=== PATIENT | male | born 1990 | race Caucasian/White ===

== ENCOUNTER 2016-10-28 22:32 | Emergency (ER) | payer SELFPAY ==
[~2016-10-28] VITALS: Ht 182.9 cm; Wt 182.0 kg
[2016-10-28 22:35] VITALS: BP 181/88; PULSE 106; RESP 18; TEMP 97.9; O2SAT 98
[2016-10-29 00:27] VITALS: BP 133/61; PULSE 88; RESP 16; O2SAT 97
--- NOTE | 2016-10-29 01:32 | PD ---
HPI Chief Complaint: Injury Time Seen by Provider: :29 Travel History International Travel<30 days: No Contact w/Intl Traveler<30days: No Traveled to known affect area: No History of Present Illness HPI 26-year-old male otherwise healthy presents to the emergency department for swelling of the right lower extremity. Patient reports that on Monday he had a non-syncopal trip and [place] him to be for his ankle. Patient states he sustained a superficial abrasion to the proximal lower leg. Patient states that he noticed some discomfort at the time but was able to ambulate and did not notice any ongoing proximal lower leg pain. Patient states she's been doing fairly well however today he did perform activities requires prolonged standing and this evening noticed new swelling of the lower leg with anterior bruising. Patient complains of some soreness. Patient denies any prior history of clotting disorder or DVT or PE. Patient denies chest pain or shortness of breath. Patient takes no medications on a regular basis has no chronic medical conditions other than obesity and no previous surgeries. Patient rates discomfort 8/10 intensity was standing and 2/ 10 intensity with elevation. Patient denies other concerns or complaints. Patient states he sustained other injuries with history of an fall on Monday did not his head did not have loss of consciousness did not injure his neck back chest abdomen pelvis or other extremities. [facility] Past Medical History Narrative Medical Negative past history negative surgical history no tobacco use nursing notes reviewed Medical History: Denies Significant Hx Tetanus Vaccination: > 5 Years Influenza Vaccination: No Past Surgical History Cholecystectomy: Yes Social History Alcohol Use: Yes ([facility]) Tobacco Use: No Substance Use: No Allergies-Medications (Allergen,Severity, Reaction): Coded Allergies: No Known Allergies (Unverified , 10/29/16) Reported Meds & Prescriptions Reported Meds & Active Scripts Active No Active Prescriptions or Reported Medications Review of Systems Except as stated in HPI: all other systems reviewed are Neg General / Constitutional: No: Fever, Chills HENT: No: Congestion Cardiovascular: No: Chest Pain or Discomfort Respiratory: No: Shortness of Breath Gastrointestinal: No: Abdominal Pain Genitourinary: No: Flank Pain Musculoskeletal: Positive: Edema, Pain, No: Myalgias, Arthralgias Skin: No Rash Neurologic: No: Weakness Psychiatric: No: Anxiety, Depression Hematologic/Lymphatic: No: Lymph Node Enlargement Physical Exam Narrative GENERAL: Well-developed well-nourished obese male in no acute distress no respiratory distress SKIN: Warm and dry. HEAD: Normocephalic. EYES: No scleral icterus. No injection or drainage. NECK: Supple, trachea midline. No JVD or lymphadenopathy. CARDIOVASCULAR: Regular rate and rhythm without murmurs, gallops, or rubs. RESPIRATORY: Breath sounds equal bilaterally. No accessory muscle use. GASTROINTESTINAL: Abdomen soft, non-tender, nondistended. MUSCULOSKELETAL: No cyanosis, right lower leg edema with mild erythema ecchymosis superficial abrasion with scab in place no induration drainage no point tenderness unable to discern adequate Homans sign dorsalis pedis pulse 2+ to palpation BACK: Nontender without obvious deformity. No CVA tenderness. Data Data Last Documented VS Vital Signs Date Time Temp Pulse Resp B/P Pulse Ox O2 Delivery O2 Flow Rate FiO2 10/29/16 03:39 90 16 132/74 99 Room Air 10/28/16 22:35 97.9 Orders Us Leg Venous Doppler (10/29/16 ) Tibia/Fibula (Ap/Lat) (10/29/16 ) [facility] Medical Decision Making Medical Screen Exam Complete: Yes Emergency Medical Condition: Yes Medical Record Reviewed: Yes Interpretation(s) US: RLE no DVT per Dr Calle Last Impressions Tibia/Fibula X-Ray 10/29/16 0000 Signed Impressions: Service Date/Time: Saturday, October 29, 2016 01:40 - CONCLUSION: Unremarkable examination of the right tibia. Hiram Calle MD Differential Diagnosis Sprain strain contusion fracture DVT cellulitis with edema Narrative Course Ultrasound right lower extremity ordered tibia fibula x-ray ordered Diagnosis Primary Impression: Contusion of right lower leg, initial encounter Referrals: Primary Care Physician call for appointment Patient Instructions: General Instructions Additional Instructions: Elevate lower extremity May use as needed acetaminophen or ibuprofen for symptomatically relief May use ice intimately for first 12-24 hours Follow-up with primary care provider Med/Other Pt SpecificInfo: No Meds Exist/No RX given Scripts No Active Prescriptions or Reported Meds Disposition: DISCHARGE HOME Condition: Stable Lucy Quiroga MD Oct 29, 2016 01:32 Lucy Quiroga MD Oct 29, 2016 01:32
--- NOTE | 2016-10-29 01:55 | RADRPT ---
EXAM DATE/TIME: 10/29/2016 01:40 [facility] COMPARISON: No previous studies available for comparison. INDICATIONS : Right lower leg swelling status post fall Monday. MEDICAL HISTORY : None. SURGICAL HISTORY : Cholecystectomy. ENCOUNTER: Initial ACUITY: 4 - 6 days PAIN SCORE: 0/10 LOCATION: Right lower leg. FINDINGS: Two view examination of the right tibia demonstrates no evidence of fracture or dislocation. Bony mi neralization is normal. The soft tissue structures are intact. CONCLUSION: Unremarkable examination of the right tibia. Hiram Calle MD on October 29, 2016 at 1:53 Board Certified Radiologist. This report was verified electronically.
[2016-10-29 02:10] VITALS: BP 140/72; PULSE 89; RESP 16; O2SAT 99
--- NOTE | 2016-10-29 03:08 | RADRPT ---
EXAM DATE/TIME: 10/29/2016 02:28 [facility] COMPARISON: No previous studies available for comparison. INDICATIONS : Right leg swelling and pain. MEDICAL HISTORY : Fall. Leg pain. SURGICAL HISTORY : Cholecystectomy. ENCOUNTER: Initial ACUITY: 4 - 6 days PAIN SCORE: 0/10 LOCATION: Right leg. TECHNIQUE: Venous ultrasound of the leg was performed from the inguinal ligament to the proximal calf. Real-luke e, color Doppler and spectral tracing, compression and augmentation techniques were used. FINDINGS: There is normal compressibility of the deep venous system from the inguinal region to the proximal ca lf. No echogenic clot is seen in the lumen of the common femoral, femoral, popliteal, and posterior tibial veins. There is a normal response of the venous system to proximal and distal augmentation an d respiration. CONCLUSION: Normal examination. Hiram Calle MD on October 29, 2016 at 3:07 Board Certified Radiologist. This report was verified electronically.
[2016-10-29 03:39] VITALS: BP 132/74; PULSE 90; RESP 16; O2SAT 99
== END 2016-10-29 03:47 | disposition home or self-care (01) ==
LOC: NEPC 22:32
DX: S80.11XA Contusion of right lower leg, initial encounter (principal); W01.0XXA Fall on same level from slipping, tripping and stumbling without subsequent striking against object, initial encounter
CPT/HCPCS: 73590; 93971; 99284

== ENCOUNTER 2017-05-10 15:26 | Emergency (ER) | payer OTHER ==
[~2017-05-10] VITALS: Ht 182.9 cm; Wt 176.0 kg
[2017-05-10 15:27] VITALS: BP 165/82; PULSE 118; RESP 20; TEMP 100; O2SAT 91
--- NOTE | 2017-05-10 16:38 | RADRPT ---
EXAM DATE/TIME: 05/10/2017 15:49 [facility] COMPARISON: No previous studies available for comparison. INDICATIONS : Cough, short of breath, chest tightness. MEDICAL HISTORY : None. SURGICAL HISTORY : None. ENCOUNTER: Initial ACUITY: 4 - 6 days PAIN SCORE: 0/10 LOCATION: Bilateral chest FINDINGS: Perihilar infiltrates are noted consistent with viral pneumonitis or mild pulmonary vascular congesti on. Clinical correlation is recommended. No focal alveolar consolidation is noted. The heart is jeffrey l. CONCLUSION: Perihilar infiltrates consistent with viral pneumonitis or mild pulmonary vascular congestion. Clinic al correlation is recommended. Bunny Storey MD on May 10, 2017 at 16:35 Board Certified Radiologist. This report was verified electronically.
[2017-05-10 16:40] LABS: AUTOMATED NEUTROPHIL # 3.5 TH/MM3 (1.8-7.7); BASOPHIL % 0.6 % (0.0-2.0); HEMATOCRIT 44.3 % (39.0-51.0); HEMOGLOBIN 14.8 GM/DL (13.0-17.0); LYMPH % 24.5 % (9.0-44.0); LYMPHOCYTE # 1.2 TH/MM3 (1.0-4.8); MEAN CELL VOLUME 78.1 FL (80.0-100.0); MEAN CORPUSCULAR HEMOGLOBIN 26.1 PG (27.0-34.0); MEAN CORPUSCULAR HGB CONC 33.4 % (32.0-36.0); MEAN PLATELET VOLUME 9.5 FL (7.0-11.0); MONO % 6.1 % (0.0-8.0); MONOCYTE # 0.3 TH/MM3 (0-0.9); NEUT % 68.8 % (16.0-70.0); PLATELET COUNT 248 TH/MM3 (150-450); RED BLOOD COUNT 5.67 MIL/MM3 (4.50-5.90); RED CELL DISTRIBUTION WIDTH 15.8 % (11.6-17.2); WHITE BLOOD COUNT 5.1 TH/MM3 (4.0-11.0)
[2017-05-10 16:45] LABS: INTERNATIONAL NORMALIZED RATIO 1.1 RATIO; PROTHROMBIN TIME - PATIENT 10.8 SEC (9.8-11.6)
[2017-05-10 16:58] LABS: ALBUMIN 3.6 GM/DL (3.4-5.0); AST (GOT) 65 U/L (15-37); BICARBONATE 23.1 MEQ/L (21.0-32.0); BLOOD UREA NITROGEN 13 MG/DL (7-18); CALCIUM 8.1 MG/DL (8.5-10.1); CHLORIDE 102 MEQ/L (98-107); CREATININE 1.04 MG/DL (0.60-1.30); GLOMERULAR FILTRATION RATE 86 ML/MIN (>89); GLUCOSE,RANDOM 108 MG/DL (74-106); MAGNESIUM 2.2 MG/DL (1.5-2.5); SODIUM (NA) 133 MEQ/L (136-145)
[2017-05-10 17:03] LABS: ALKALINE PHOSPHATASE 61 U/L (45-117); ALT (GPT) 41 U/L (12-78); TOTAL BILIRUBIN ADULT 0.3 MG/DL (0.2-1.0); TOTAL PROTEIN 8.4 GM/DL (6.4-8.2); TROPONIN I LESS THAN 0.02 NG/ML (0.02-0.05)
[2017-05-10 17:20] VITALS: PULSE 113; RESP 22; O2SAT 96
[2017-05-10] MEDS ORDERED: KETOROLAC TROMETHAMINE 30 MG/ML (IVP) VIAL IV PUSH ONE (17:30)
[2017-05-10] MEDS ORDERED: SODIUM CHLOR 0.9% 1000 ML INJ 1,000 ML IV ONE (17:30)
[2017-05-10 17:36] VITALS: PULSE 123; RESP 24; O2SAT 95
[2017-05-10 17:58] VITALS: O2SAT 94
[2017-05-10] MEDS ORDERED: RESP: ALBUTEROL 2.5 MG/3 ML NEB (SCH) NEB ONE (18:00)
[2017-05-10] MEDS ORDERED: ALBUAER3 INH (19:07)
[2017-05-10] MEDS ORDERED: ZITHTAB PO (19:07)
[2017-05-10] MEDS ORDERED: GUAI100S5 PO (19:07)
--- NOTE | 2017-05-10 19:07 | PD ---
HPI Chief Complaint: Respiratory Symptoms Time Seen by Provider: 17:28 Travel History International Travel<30 days: No Contact w/Intl Traveler<30days: No Traveled to known affect area: No History of Present Illness HPI Patient is a 27-year-old male who comes in complaining of cough and shortness of breath. He was sent here from urgent care due to concerns for hypoxemia. He says that he has been sick since Monday with fever, chills, cough and cold. He was seen Monday at urgent care was diagnosed with the flu. He was discharged with prescriptions for Tamiflu and Augmentin, which she has been taking. He says he is is not feeling better. He says the cough is worse at night, and he occasionally has some blood in his sputum. He denies any pains. He has been taking Tylenol and ibuprofen for fever, but says it upsets his stomach. Severity is mild to moderate. PFSH Past Medical History Medical History: Denies Significant Hx Diminished Hearing: No Tetanus Vaccination: > 5 Years Influenza Vaccination: No Past Surgical History Cholecystectomy: Yes Social History Alcohol Use: Yes (occ) Tobacco Use: Yes Substance Use: No Allergies-Medications (Allergen,Severity, Reaction): Coded Allergies: No Known Allergies (Verified Adverse Reaction, Unknown, 05/10/17) Reported Meds & Prescriptions Reported Meds & Active Scripts Active Zithromax Z-Dale (Azithromycin) 250 Mg Dspk 250 Mg PO DIRECTED 500 MG (2 tabs) day 1, then 1 tab days 2-5. Guaifenesin-Codeine Liq 100-10 Mg/5 Ml Soln 10 Ml PO Q6H PRN 5 Days Proair Hfa 8.5 GM Inh (Albuterol Sulfate) 90 Mcg/Act Aer 2 Puff INH Q4-6H PRN 108 mcg/actuation Review of Systems Except as stated in HPI: all other systems reviewed are Neg General / Constitutional: Positive: Fever HENT: Positive: Congestion, No: Headaches, Lightheadedness Cardiovascular: No: Chest Pain or Discomfort Respiratory: Positive: Cough Gastrointestinal: Positive: Nausea, No: Vomiting, Abdominal Pain Musculoskeletal: Positive: Myalgias, No: Edema Skin: No Rash, No Change in Pigmentation Neurologic: No: Weakness, Dizziness Physical Exam Narrative GENERAL: Awake and alert, in no acute distress. SKIN: Focused skin assessment warm/dry. HEAD: Atraumatic. Normocephalic. EYES: Pupils equal and round. No scleral icterus. ENT: Mucous membranes pink and moist. NECK: Trachea midline. No JVD. CARDIOVASCULAR: tachycardia. No murmur appreciated. RESPIRATORY: No accessory muscle use. Occasional right-sided wheezes. Breath sounds equal bilaterally. GASTROINTESTINAL: Abdomen soft, non-tender, nondistended. MUSCULOSKELETAL: No obvious deformities. No clubbing. No cyanosis. No edema. NEUROLOGICAL: Awake and alert. No obvious cranial nerve deficits. Motor grossly within normal limits. Normal speech. PSYCHIATRIC: Appropriate mood and affect; insight and judgment normal. Data Data Last Documented VS Vital Signs Date Time Temp Pulse Resp B/P (MAP) Pulse Ox O2 Delivery O2 Flow Rate FiO2 05/10/17 19:15 100 22 106/59 (75) 97 05/10/17 17:58 21 05/10/17 17:36 Nasal Cannula 2.00 05/10/17 15:27 100.0 Orders Orders Electrocardiogram (05/10/17 15:32) Complete Blood Count With Diff (05/10/17 15:32) Comprehensive Metabolic Panel (05/10/17 15:32) Prothrombin Time / Inr (Pt) (05/10/17 15:32) Act Partial Throm Time (Ptt) (05/10/17 15:32) Lactic Acid Sepsis Protocol (05/10/17 15:32) Magnesium (Mg) (05/10/17 15:32) Ckmb (Isoenzyme) Profile (05/10/17 15:32) Troponin I (05/10/17 15:32) Influenzae A/B Antigen (05/10/17 15:32) Chest, Pa & Lat (05/10/17 15:32) CKMB (05/10/17 16:10) CKMB% (05/10/17 16:10) Sodium Chlor 0.9% 1000 Ml Inj (Ns 1000 M (05/10/17 17:30) Ketorolac Inj (Toradol Inj) (05/10/17 17:30) Albuterol Neb (Albuterol Neb) (05/10/17 18:00) Ceftriaxone Inj (Rocephin Inj) (05/10/17 19:15) Azithromycin Inj (Zithromax Inj) (05/10/17 19:15) Labs Laboratory Tests Test 05/10/17 16:10 White Blood Count 5.1 TH/MM3 Red Blood Count 5.67 MIL/MM3 Hemoglobin 14.8 GM/DL Hematocrit 44.3 % Mean Corpuscular Volume 78.1 FL Mean Corpuscular Hemoglobin 26.1 PG Mean Corpuscular Hemoglobin Concent 33.4 % Red Cell Distribution Width 15.8 % Platelet Count 248 TH/MM3 Mean Platelet Volume 9.5 FL Neutrophils (%) (Auto) 68.8 % Lymphocytes (%) (Auto) 24.5 % Monocytes (%) (Auto) 6.1 % Eosinophils (%) (Auto) 0.0 % Basophils (%) (Auto) 0.6 % Neutrophils # (Auto) 3.5 TH/MM3 Lymphocytes # (Auto) 1.2 TH/MM3 Monocytes # (Auto) 0.3 TH/MM3 Eosinophils # (Auto) 0.0 TH/MM3 Basophils # (Auto) 0.0 TH/MM3 CBC Comment DIFF FINAL Differential Comment Prothrombin Time 10.8 SEC Prothromb Time International Ratio 1.1 RATIO Activated Partial Thromboplast Time 36.4 SEC Blood Urea Nitrogen 13 MG/DL Creatinine 1.04 MG/DL Random Glucose 108 MG/DL Total Protein 8.4 GM/DL Albumin 3.6 GM/DL Calcium Level 8.1 MG/DL Magnesium Level 2.2 MG/DL Alkaline Phosphatase 61 U/L Aspartate Amino Transf (AST/SGOT) 65 U/L Alanine Aminotransferase (ALT/SGPT) 41 U/L Total Bilirubin 0.3 MG/DL Sodium Level 133 MEQ/L Potassium Level 3.8 MEQ/L Chloride Level 102 MEQ/L Carbon Dioxide Level 23.1 MEQ/L Anion Gap 8 MEQ/L Estimat Glomerular Filtration Rate 86 ML/MIN Lactic Acid Level 1.2 mmol/L Total Creatine Kinase 490 U/L Creatine Kinase MB 1.3 NG/ML Creatine Kinase MB % 0.3 % Troponin I LESS THAN 0.02 NG/ML [facility] Medical Decision Making Medical Screen Exam Complete: Yes Emergency Medical Condition: Yes Medical Record Reviewed: Yes Differential Diagnosis Influenza versus pneumonia versus electrolyte abnormality versus dehydration Narrative Course Patient is a 27-year-old male who comes in with cough and fever. Exam shows occasional wheezing. IV established, labs sent. Labs show no acute abnormalities. Patient is positive for flu. X-ray shows perihilar infiltrates. Last 24 hours Impressions Chest X-Ray 05/10/17 1532 Signed Impressions: Service Date/Time: Wednesday, May 10, 2017 15:49 - CONCLUSION: Perihilar infiltrates consistent with viral pneumonitis or mild pulmonary vascular congestion. Clinical correlation is recommended. Bunny Storey MD Given IV fluids, Toradol. Given an albuterol treatment. Given a dose of Rocephin and azithromycin. Patient has been on Augmentin, which I do not believe is the correct antibiotic for pneumonia. He will be changed to azithromycin. Discharge with prescriptions for cough medicine, azithromycin, albuterol. Advised follow-up with a primary care doctor. Advised to drink plenty of fluids. Advised return to the ED as needed for any worsening symptoms. Diagnosis Primary Impression: Influenza Additional Impression: Pneumonia Qualified Codes: J18.9 - Pneumonia, unspecified organism Referrals: [facility] call for appointment Patient Instructions: Bacterial Pneumonia (ED), General Instructions, Influenza (ED) Additional Instructions: Follow-up with a primary care doctor. Use albuterol as needed for shortness of breath. He can take the cough medicine with codeine to help with cough, but be careful as it may make you drowsy. Take all of your antibiotic. Return to the ED as needed for any worsening symptoms. Scripts Azithromycin (Zithromax Z-Dale) 250 Mg Dspk 250 MG PO DIRECTED for Infection, #1 DSPK 0 Refills 500 MG (2 tabs) day 1, then 1 tab days 2-5. Prov: Martita Marques MD 05/10/17 Guaifenesin-Codeine Liq (Guaifenesin-Codeine Liq) 100-10 Mg/5 Ml Soln 10 ML PO Q6H Y for COUGH for 5 Days, #1 BOTTLE 0 Refills Prov: Martita Marques MD 05/10/17 Albuterol 8.5 GM Inh (Proair Hfa 8.5 GM Inh) 90 Mcg/Act Aer 2 PUFF INH Q4-6H Y for SHORTNESS OF BREATH, #1 INHALER 0 Refills 108 mcg/actuation Prov: Martita Marques MD 05/10/17 Disposition: 01 DISCHARGE HOME Condition: Stable Martita Marques MD May 10, 2017 19:07
[2017-05-10 19:15] VITALS: BP 106/59; PULSE 100; RESP 22; O2SAT 97
[2017-05-10] MEDS ORDERED: cefTRIAXone INJ 1,000 MG in SODIUM CHLORIDE 0.9% INJ 100 ML IV ONE (19:15)
[2017-05-10] MEDS ORDERED: AZITHROMYCIN INJ 500 MG in SODIUM CHLOR 0.9% 250 ML INJ 250 ML IV ONE (19:15)
--- NOTE | 2017-05-11 20:20 | EKG ---
Date Performed: 05/10/2017 Time Performed: 16:20:02 PTAGE: 27 years EKG: SINUS TACHYCARDIA ABNORMAL RHYTHM ECG NO PREVIOUS TRACING DOCTOR: Rasta Carrillo Interpretating Date/Time 05/11/2017 20:15:36
== END 2017-05-10 21:40 | disposition home or self-care (01) ==
LOC: NEPE 15:26
DX: J10.00 Influenza due to other identified influenza virus with unspecified type of pneumonia (principal); R00.0 Tachycardia, unspecified; Z72.0 Tobacco use
CPT/HCPCS: 71046; 80053; 82550; 82552; 83605; 83735; 84484; 85025; 85610; 85730; 87804; 93005; 94664; 96361; 96365; 96375; 99285; J0456; J0696; J1885; J7030; J7050; J7613